=== PATIENT | female | born 1945 | race Caucasian/White ===

== ENCOUNTER 2020-06-21 07:34 | Outpatient (REF) | payer OTHER, SELFPAY ==
[2020-06-21 07:53] LABS: Hematocrit 47.2 % (37-47); Hemoglobin 15.7 g/dl (12.0-16.0); Mean Corpuscular HGB Conc 33.3 g/dl (31.0-35.0); Mean Corpuscular Hemoglobin 30.8 pg (27.0-33.0); Mean Corpuscular Volume 92.7 fL (80-98); Mean Platelet Volume 10.5 fL (9.4-12.3); NRBC Pct Auto 0.1 /100WBC (0.0-0.2); Platelet Count 342 X10*3/uL (160-400); Red Blood Count 5.09 X10*6/uL (4.20-5.50); White Blood Count 15.5 X10*3/uL (4.8-10.8)
[2020-06-21 08:21] LABS: Alanine Aminotransferase 99 U/L (0-31); Albumin Level 3.4 g/dL (3.5-5.0); Anion Gap 14 (12-20); Aspartate Amino Transferase 30 U/L (5-31); Bilirubin Total 0.5 mg/dL (0.0-1.0); Blood Urea Nitrogen 51 mg/dL (9-16); Calcium 9.3 mg/dL (8.4-10.2); Carbon Dioxide 28 mmol/L (22-29); Chloride 100 mmol/L (96-108); Estimated Glomerular Filt Rate 50; Glucose Random 87 mg/dL (60-115); Sodium 137 mmol/L (135-145); Total Protein 6.2 g/dL (6.5-8.0)
[2020-06-21 08:22] LABS: Alkaline Phosphatase 60 U/L (39-117)
== END 2020-06-21 07:35 | disposition home or self-care (01) ==
LOC: HO.MMNH1L 07:34
PROVIDERS: Visit Provider Family Medicine
DX: U07.1 COVID-19 (principal); I10 Essential (primary) hypertension
CPT/HCPCS: 36415; 80053; 85027

== ENCOUNTER 2020-06-26 10:52 | Outpatient (REF) | payer MEDICARE, SELFPAY ==
[2020-06-26 07:32] LABS: Hematocrit 40.6 % (37-47); Hemoglobin 12.9 g/dl (12.0-16.0); Mean Corpuscular HGB Conc 31.8 g/dl (31.0-35.0); Mean Corpuscular Hemoglobin 30.9 pg (27.0-33.0); Mean Corpuscular Volume 97.1 fL (80-98); Mean Platelet Volume 10.2 fL (9.4-12.3); Platelet Count 239 X10*3/uL (160-400); Red Blood Count 4.18 X10*6/uL (4.20-5.50); Red Cell Distribution Width 13.4 % (11.0-16.0); White Blood Count 7.2 X10*3/uL (4.8-10.8)
[2020-06-26 07:56] LABS: Anion Gap 12 (12-20); Blood Urea Nitrogen 28 mg/dL (9-16); Calcium 8.2 mg/dL (8.4-10.2); Carbon Dioxide 29 mmol/L (22-29); Chloride 104 mmol/L (96-108); Estimated Glomerular Filt Rate 43; Glucose Random 77 mg/dL (60-115); Potassium 4.1 mmol/L (3.3-5.1); Sodium 141 mmol/L (135-145)
== END 2020-06-26 10:53 | disposition home or self-care (01) ==
LOC: HO.MMNH1L 10:52
PROVIDERS: Visit Provider Family Medicine
DX: U07.1 COVID-19 (principal); I10 Essential (primary) hypertension
CPT/HCPCS: 36415; 80048; 85027

== ENCOUNTER 2020-07-03 10:29 | Outpatient (REF) | payer MEDICARE, SELFPAY ==
[2020-07-03 08:35] LABS: Hematocrit 41.1 % (37-47); Hemoglobin 12.8 g/dl (12.0-16.0); Mean Corpuscular HGB Conc 31.1 g/dl (31.0-35.0); Mean Corpuscular Hemoglobin 30.8 pg (27.0-33.0); Mean Corpuscular Volume 98.8 fL (80-98); Mean Platelet Volume 10.8 fL (9.4-12.3); Platelet Count 200 X10*3/uL (160-400); Red Blood Count 4.16 X10*6/uL (4.20-5.50); Red Cell Distribution Width 13.3 % (11.0-16.0); White Blood Count 6.8 X10*3/uL (4.8-10.8)
[2020-07-03 09:24] LABS: Anion Gap 13 (12-20); Blood Urea Nitrogen 27 mg/dL (9-16); Calcium 8.6 mg/dL (8.4-10.2); Carbon Dioxide 30 mmol/L (22-29); Chloride 104 mmol/L (96-108); Estimated Glomerular Filt Rate 36; Glucose Random 82 mg/dL (60-115); Sodium 143 mmol/L (135-145)
== END 2020-07-03 10:30 | disposition home or self-care (01) ==
LOC: HO.MMNH1L 10:29
PROVIDERS: Visit Provider Family Medicine
DX: U07.1 COVID-19 (principal); I10 Essential (primary) hypertension
CPT/HCPCS: 36415; 80048; 85027

== ENCOUNTER 2020-07-10 00:26 | Outpatient (REF) | payer MEDICARE, SELFPAY | END 2020-07-10 00:27 | disposition home or self-care (01) | LOC: HO.MMNH1L 00:26 | PROVIDERS: Visit Provider Family Medicine | DX: Z13.89 Encounter for screening for other disorder (principal) ==

== ENCOUNTER → 2022-02-05 14:44 | Outpatient (BNVA) | payer OTHER, SELFPAY | PROVIDERS: Visit Provider Physician Assistant Surgical | DX: E66.01 Morbid (severe) obesity due to excess calories (principal); Z68.41 Body mass index [BMI] 40.0-44.9, adult | CPT/HCPCS: 99202 ==

== ENCOUNTER 2023-04-16 18:34 | Emergency (ER) | payer OTHER, SELFPAY ==
--- NOTE | ~2023-04-16 | CT_ITS ---
EXAMINATION: CT ABDOMEN AND PELVIS WITHOUT CONTRAST CLINICAL INFORMATION: Right flank pain and hematuria COMPARISON: None available. TECHNIQUE: Multidetector volumetric imaging was performed from the superior aspect of the liver through the pubic symphysis. Sagittal and coronal reformatted images were obtained on the technologist's workstation. This CT examination was performed using dose optimization techniques as appropriate, variously including the following: *Automated exposure control *Adjustment of mA and/or kV according to patient size (this includes techniques or standardized protocols for targeted exams where dose is matched to indication/reason for exam; i.e. extremities or head) *Use of iterative reconstruction technique DLP: 1327 mGy-cm FINDINGS: LUNG BASES: The visualized lung bases are unremarkable. LIVER, GALLBLADDER, AND BILIARY TREE: The liver is normal in size, shape, and attenuation. No focal hepatic lesion or biliary ductal dilatation is present. The gallbladder is not seen and has presumably been removed. PANCREAS: Unremarkable. SPLEEN: Unremarkable. ADRENAL GLANDS: Unremarkable. KIDNEYS AND URETERS: The kidneys are normal in size, shape, and attenuation. No hydronephrosis, hydroureter, or calculi seen. Bilateral renal cysts. No imaging follow-up recommended. No perinephric stranding. BLADDER: Not optimally distended. GASTROINTESTINAL TRACT: Diverticulosis of the colon. No evidence of diverticulitis. The small and large bowel are otherwise unremarkable. The appendix is not seen. No inflammatory changes in the right lower quadrant. ABDOMINAL WALL: Small elbow hernia fat. LYMPH NODES: Normal. VASCULAR: Unremarkable. PELVIC VISCERA: Unremarkable. OSSEOUS STRUCTURES: Left hip hemiarthroplasty. Degenerative changes of the spine. CT/CT abdomen pelvis wo IV con IMPRESSION: No stone or hydronephrosis. Diverticulosis of the colon. No evidence of diverticulitis. Fleischner guidelines were followed.
[2023-04-16 19:18] VITALS: BP 171/101; PULSE 74; RESP 18; TEMP 36.6; O2SAT 97; BMI 40.5
--- NOTE | 2023-04-16 19:18 | ED.FEMALEGU ---
HPI - Female Genitourinary General Chief complaint: Urogenital-Female Stated complaint: ?UTI Time Seen by Provider: 04/16/23 20:31 Source: patient Mode of arrival: ambulatory Limitations: no limitations History of Present Illness HPI Narrative: Patient's history of urinary incontinence been having bladder spasm and more incontinence for last 2- 3 days was seen at [facility] and diagnosed with UTI and started on Ceftin. No fever but patient has chills feels exhausted also has pain in the back patient has a right-sided had rg blood in the urine 2 days ago no history of kidney stone Related Data Home Medications Medication Instructions Recorded Confirmed acetaminophen 325 mg tablet 325 mg PO QID PRN 02/05/22 02/05/22 (Tylenol) apixaban 2.5 mg tablet (Eliquis) 2.5 mg PO BID 02/05/22 02/05/22 ascorbic acid (vitamin C) 250 mg 250 mg PO DAILY 02/05/22 02/05/22 tablet ascorbic acid (vitamin C) 250 mg 250 mg PO DAILY 02/05/22 02/05/22 tablet cholecalciferol (vitamin D3) 25 25 mcg PO DAILY 02/05/22 02/05/22 mcg (1,000 unit) capsule (Vitamin D3) famotidine 40 mg tablet 40 mg PO BID 02/05/22 02/05/22 fenofibrate 54 mg tablet 54 mg PO DAILY 02/05/22 02/05/22 fluoxetine 20 mg capsule 20 mg PO DAILY 02/05/22 02/05/22 gabapentin 300 mg capsule 300 mg PO QAM 02/05/22 02/05/22 losartan 50 mg tablet 50 mg PO DAILY 02/05/22 02/05/22 magnesium oxide 500 mg capsule 125 mg PO DAILY 02/05/22 02/05/22 multivitamin with folic acid 400 1 tab PO DAILY 02/05/22 02/05/22 mcg tablet (Daily-Calixto (with folic acid)) Previous Rx's Medication Instructions Recorded phenazopyridine 200 mg tablet 200 mg PO TID 2 days #6 tabs 04/16/23 (Pyridium) Allergies Allergy/AdvReac Type Severity Reaction Status Date / Time CODINE Allergy Severe Anaphylaxis Uncoded 04/16/23 19:22 STATIN FAMILY Allergy Mild RASH Uncoded 04/16/23 19:22 Review of Systems Review of Systems: Yes all other systems are reviewed and are negative [facility] Past Medical History Surgical History S/P cholecystectomy S/P appendectomy History of left hip replacement History of total left knee replacement Family History Family History Mother Breast cancer Chronic emphysema syndrome Father Cancer Brother Heart problem Sister Diabetes Son No problems noted. Son Asthma Daughter Asthma Social History Social History Alcohol intake: never Patient Tobacco Use Status: Never used Tobacco Smoked in Last 30 Days: No Use of substances other than those prescribed or required for medical reasons: No Advance Directives: No Physical Exam Vital Signs: Vital Signs: Last Vital Signs Temp 98.2 F 04/17/23 00:27 Pulse 79 04/17/23 00:27 Resp 20 04/17/23 00:27 BP 145/70 H 04/17/23 00:27 Pulse Ox 98 04/17/23 00:27 O2 Del Method Room Air 04/17/23 00:27 BMI result Body Mass Index 40.5 Appearance: Alert. Oriented X3. No acute distress. Obese Eyes: PERRLA, No Nystagmus ENT: Pharynx normal. Oral Mucosa moist Neck: Normal inspection. Neck supple. CVS: Normal heart rate and rhythm. Pulses normal. Respiratory: No respiratory distress. Equal air entry bilateral, no wheezing/rales/rhonchi Abdomen: Soft , deep tenderness suprapubic area and right flank area. Bowel sounds are present, no mass palpable, Skin: Skin warm and dry. Normal skin color. Normal skin turgor. Extremities: No lower extremity edema. No calf tenderness Neuro: Oriented X 3. No motor deficit. Course Course Course Narrative: RME: 78yo F w/PMHx Anxiety, HTN, obesity, depression c/o continued dysuria, frequency & hematuria s/p UTI diagnosis at [facility] yesterday. Admits to decreased PO intake. Reports chronic incontinence - worsening since UTI Patient was Rx Ceftin at [facility] Labs, UA ordered Full HPI, ROS and PE to be performed by primary ED provider. Medications Administered Discontinued Medications Generic Name Dose Route Start Last Admin Trade Name Freq PRN Reason Stop Dose Admin Apixaban 2.5 mg 12/13/23 21:24 04/16/23 22:47 Apixaban 2.5 Mg Tablet PO 04/16/23 21:25 2.5 mg ONCE ONE Administration Ceftriaxone Sodium 1 gm/ 50 mls @ 100 mls/hr 04/16/23 22:14 04/16/23 22:47 Sodium Chloride IV 04/16/23 22:43 100 mls/hr ONCE ONE Administration Losartan Potassium 50 mg 04/16/23 21:24 04/16/23 22:47 Losartan Potassium 50 Mg Tablet PO 04/16/23 21:25 50 mg ONCE ONE Administration Protocol Morphine Sulfate 4 mg 04/16/23 21:24 04/16/23 22:46 Morphine Sulfate 4 Mg/Ml Cartridge IVPUSH 04/16/23 21:25 4 mg ONCE ONE Administration Protocol Ondansetron HCl 4 mg 04/16/23 21:24 04/16/23 22:46 Ondansetron Hcl 4 Mg/2 Ml Vial IVPUSH 04/16/23 21:25 4 mg ONCE ONE Administration Phenazopyridine HCl 200 mg 04/16/23 22:59 04/16/23 23:34 Phenazopyridine Hcl 200 Mg Tablet PO 04/16/23 23:00 200 mg ONCE ONE Administration Medical Decision Making Medical Decision Making [facility] Narrative: Patient with partially treated UTI with bladder spasm IV dose of Rocephin was given advised to continue Ceftin and take Pyridium for bladder spasm and follow with urologist Differential Diagnosis Differential Diagnoses: The differential diagnosis associated with the presentation includes UTI/pyelonephritis/kidney stone Lab Data [facility] Lab Attestation statement: I reviewed the patient's lab results. 04/16/23 19:41 04/16/23 19:41 Labs: Lab Results 04/16/23 04/16/23 Range/Units 19:41 21:54 WBC 10.8 (4.8-10.8) X10*3/uL RBC 5.17 (4.20-5.50) X10*6/uL Hgb 15.9 (12.0-16.0) g/dl Hct 49.3 H (37.0-47.0) % MCV 95.4 (80.0-98.0) fL MCH 30.8 (27.0-33.0) pg MCHC 32.3 (31.0-35.0) g/dl RDW 13.7 (11.0-16.0) % Plt Count 226 (160-400) X10*3/uL MPV 9.5 (9.4-12.3) fL Immature Gran % (Auto) 0.2 (0.0-0.4) % Neut % (Auto) 48.8 (45-73) % Lymph % (Auto) 40.2 H (20-40) % [place] % (Auto) 8.6 (2-11) % Eos % (Auto) 1.9 (0-4) % Baso % (Auto) 0.3 (0-2) % Lymph # (Auto) 4.4 (1.2-4.9) X10*3/uL [place] # (Auto) 0.9 (0.1-1.2) X10*3/uL Eos # (Auto) 0.2 (0.0-0.4) X10*3/uL Baso # (Auto) 0.0 (0.0-0.2) X10*3/uL Abs Immat Gran (auto) 0.02 (0.00-0.03) X10*3/uL Absolute Neuts (auto) 5.3 (2.0-8.3) x10*3/uL Absolute Nucleated RBC 0.000 (0.0-0.012) X10*3/uL Nucleated RBC % (auto) 0.0 (0.0-0.2) /100WBC Sodium 142 (135-145) mmol/L Potassium 3.7 (3.3-5.1) mmol/L Chloride 107 (96-108) mmol/L Carbon Dioxide 24 (22-29) mmol/L Anion Gap 15 (12-20) BUN 26 H (9-16) mg/dL Creatinine 1.22 (0.5-1.4) mg/dL Estim Creat Clear Calc 49.4 Estimated GFR 43 Random Glucose 131 H (60-115) mg/dL Calcium 10.0 D (8.4-10.2) mg/dL Magnesium 2.2 (1.6-2.6) mg/dL Total Bilirubin 0.5 (0.0-1.0) mg/dL Direct Bilirubin 0.2 (0.0-0.5) mg/dL AST 30 (5-31) U/L ALT 23 (0-31) U/L Alkaline Phosphatase 43 (39-117) U/L Total Protein 8.2 H (6.5-8.0) g/dL Albumin 4.4 (3.5-5.0) g/dL Urine Color Yellow Urine Appearance Cloudy Urine pH 5.0 (5.0-9.0) Ur Specific [place] 1.020 (1.005-1.025) Urine Protein 300 (3+) H (Neg-Trace) mg/dL Urine Glucose (UA) Negative (Negative) mg/dL Urine Ketones Negative (Negative) mg/dL Urine Blood Large (3+) H (Negative) Urine Nitrite Negative (Negative) Ur Leukocyte Esterase Trace H (Negative) Urine RBC >20 H (0-2) /HPF Urine WBC 6-10 H (0-5) /HPF Ur Squamous Epith Cells 6-10 (0-2) /HPF Urine Bacteria None Seen (None Seen) Hyaline Casts 0-2 (0-2) /LPF Discharge Plan Discharge Clinical Impression: Cystitis Patient Disposition: Home, Self-Care Instructions: Urinary Tract Infection in Women (ED) Additional Instructions: Drink plenty of fluids Continue antibiotic as prescribed Take pyridium for bladder spasm Follow-up with PCP if not better Prescriptions: New phenazopyridine [Pyridium] 200 mg tablet 200 mg PO TID 2 Days Qty: 6 0RF No Action losartan 50 mg tablet 50 mg PO DAILY gabapentin 300 mg capsule 300 mg PO QAM fluoxetine 20 mg capsule 20 mg PO DAILY Eliquis 2.5 mg tablet 2.5 mg PO BID ascorbic acid (vitamin C) 250 mg tablet 250 mg PO DAILY famotidine 40 mg tablet 40 mg PO BID fenofibrate 54 mg tablet 54 mg PO DAILY cholecalciferol (vitamin D3) [Vitamin D3] 25 mcg (1,000 unit) capsule 25 mcg PO DAILY multivitamin with folic acid [Daily-Calixto (with folic acid)] 400 mcg tablet 1 tab PO DAILY ascorbic acid (vitamin C) 250 mg tablet 250 mg PO DAILY magnesium oxide 500 mg capsule 125 mg PO DAILY acetaminophen [Tylenol] 325 mg tablet 325 mg PO QID PRN Interventions: ED Discharge Assessment Last Done: 04/17/23 00:28 Discharge Date/Time: 04/17/23 00:31
[2023-04-16 19:47] LABS: MANUAL DIFF FLAG NO
[2023-04-16 19:49] LABS: Basophils Percent Auto 0.3 % (0-2); Eosinophils Absolute Auto 0.2 X10*3/uL (0.0-0.4); Eosinophils Percent Auto 1.9 % (0-4); Hematocrit 49.3 % (37.0-47.0); Hemoglobin 15.9 g/dl (12.0-16.0); Imm Gran Abs Auto 0.02 X10*3/uL (0.00-0.03); Imm Gran Pct Auto 0.2 % (0.0-0.4); Lymphocytes Absolute Auto 4.4 X10*3/uL (1.2-4.9); Lymphocytes Percent Auto 40.2 % (20-40); Mean Corpuscular HGB Conc 32.3 g/dl (31.0-35.0); Mean Corpuscular Hemoglobin 30.8 pg (27.0-33.0); Mean Corpuscular Volume 95.4 fL (80.0-98.0); Mean Platelet Volume 9.5 fL (9.4-12.3); Monocytes Absolute Auto 0.9 X10*3/uL (0.1-1.2); Monocytes Percent Auto 8.6 % (2-11); Neutrophils Absolute Auto 5.3 x10*3/uL (2.0-8.3); Neutrophils Percent Auto 48.8 % (45-73); Platelet Count 226 X10*3/uL (160-400); Red Blood Count 5.17 X10*6/uL (4.20-5.50); Red Cell Distribution Width 13.7 % (11.0-16.0); White Blood Count 10.8 X10*3/uL (4.8-10.8)
[2023-04-16 20:02] LABS: Alanine Aminotransferase 23 U/L (0-31); Albumin Level 4.4 g/dL (3.5-5.0); Alkaline Phosphatase 43 U/L (39-117); Anion Gap 15 (12-20); Aspartate Amino Transferase 30 U/L (5-31); Bilirubin Direct 0.2 mg/dL (0.0-0.5); Bilirubin Total 0.5 mg/dL (0.0-1.0); Blood Urea Nitrogen 26 mg/dL (9-16); Carbon Dioxide 24 mmol/L (22-29); Chloride 107 mmol/L (96-108); Creatinine Clr Calc Pharmacy 49.4; Estimated Glomerular Filt Rate 43; Glucose Random 131 mg/dL (60-115); Magnesium 2.2 mg/dL (1.6-2.6); Potassium 3.7 mmol/L (3.3-5.1); Sodium 142 mmol/L (135-145); Total Protein 8.2 g/dL (6.5-8.0)
--- OUTSIDE RECORDS SUMMARY | 2023-04-16 20:58 | XMS_ITS | Continuity of Care Document ---
Author Name Unknown Organization [facility] ter Address [address] [place] [phone]- Care Team Providers Care Capacity Analyst Name Role Phone Trice Andrea MD Primary Care Physician Encounter [facility] [place] Date(s): 01/18/22 - 01/18/[address] [address] Discharge Disposition: A-D/C Home Attending Physician: Sukh Truong MD Admitting Physician: Sukh Truong MD Referring Physician: Sukh Truong MD Allergies, Adverse Reactions, Alerts Substance Reaction Severity Status codeine anaphalyaxis Active erythromycin rash Active Latex red hands and itchy' Active NSAIDs itch,rash Active Immunizations Given and Recorded Vaccine Date Status Refusal Reason pneumococcal 23-valent vaccine 02/20/10 Given Medications biotin 10 mg oral tablet 1 tablet = 10 mg, By Mouth, Daily, 0 Refills, Maintenance, 01/16/22 17:32:00 EDT, Partial fill uponpatient request if the prescription is for a schedule II opioid drug. Start Date: 01/16/22 Status: Ordered clotrimazole 1% topical cream 1 application, Topically, 2 times a day, PRN Rash, Maintenance, 01/27/20 10:39:00 EDT, Cream Start Date: 01/27/20 Status: Ordered Eliquis 2.5 mg oral tablet 1 tablet = 2.5 mg, By Mouth, 2 times a day, # 60 tablet, 0 Refills, Maintenance, 01/16/22 17:27:00 EDT, Tablet, Partial fill upon patient request if the prescription is for a schedule II opioid drug. Start Date: 01/16/22 Status: Ordered famotidine 40 mg oral tablet 1 tablet = 40 mg, By Mouth, 2 times a day, # 60 tablet, 0 Refills, Maintenance, 01/16/22 17:29:00 EDT, Tablet, Partial fill upon patient request if the prescription is for a schedule II opioid drug. Start Date: 01/16/22 Status: Ordered fenofibrate 50 mg oral capsule 1 capsule = 50 mg, By Mouth, Daily in AM, Maintenance, 01/27/20 10:36:00 EDT, Capsule Start Date: 01/27/20 Status: Ordered fluoxetine 20 mg oral capsule 1 capsule = 20 mg, By Mouth, Daily, 0 Refills, Maintenance Start Date: 04/23/11 Status: Ordered gabapentin 600 mg oral tablet 1 tablet = 600 mg, By Mouth, 3 times a day, # 90 tablet, 5 Refills, Maintenance, 01/16/22 17:26:00 EDT, Tablet, Partial fill upon patient request if the prescription is for a schedule II opioid drug. Start Date: 01/16/22 Status: Ordered Losartan = 75 mg, By Mouth, Daily, (takes a 50 mg plus a 25mg for total dose of 75mg), 0 Refills, Maintenance, 10/03/20 10:44:00 EDT, Partial fill upon patient request if the prescription is for a schedule IIopioid drug. Start Date: 10/03/20 Status: Ordered Miscellaneous Rx 125 mg, Chew, Daily, 0 Refills, Maintenance, Magnesium, 01/17/22 14:49:00 EDT Start Date: 01/17/22 Status: Ordered Multivitamin 1 tablet, By Mouth, Daily, 0 Refills, Maintenance, 10/03/20 10:19:00 EDT, Partial fill upon patientrequest if the prescription is for a schedule II opioid drug. Start Date: 10/03/20 Status: Ordered Myrbetriq 50 mg oral tablet, extended release 1 tablet = 50 mg, By Mouth, Daily in AM, do not crush or chew, Maintenance, 01/27/20 10:37:00 EDT, ER Tablet Start Date: 01/27/20 Status: Ordered Probiotic Formula By Mouth, Daily, 0 Refills, Maintenance, 01/16/22 17:33:00 EDT, Partial fill upon patient request if the prescription is for a schedule II opioid drug. 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 Active Severe obesity(Confirmed) Active 1Left Forearm Vital Signs Most recent to oldest [Reference Range]: 1 2 3 Height 167.6 cm (01/18/22 7:30 AM) 167.6 cm (01/16/22 6:26 PM) Weight 118.4 kg (01/18/22 7:30 AM) 116.3 kg (01/16/22 6:26 PM) Oxygen Saturation [94-100 %] 100 % (01/18/22 8:45 AM) 100 % (01/18/22 8:30 AM) 97 % (01/18/22 7:30 AM) Pulse Rate [55-90 bpm] 58 bpm (01/18/22 7:30 AM) Body Mass Index [18.5-24.99] 42.15 *>HHI* (01/18/22 7:30 AM) 41.4 *>HHI* (01/16/22 6:26 PM) Blood Pressure [90-138/55-84 mm Hg] 116/48mm Hg (01/18/22 8:30 AM) 157/66mm Hg *H* (01/18/22 7:30 AM) Respiratory Rate [16-30 br/min] 14 br/min *L* (01/18/22 8:30 AM) 16 br/min (01/18/22 7:30 AM) Temperature [96.8-100.4 DegF] 97 DegF (01/18/22 8:30 AM) 98.2 DegF (01/18/22 7:30 AM) Liters per Minute 4 L/min (01/18/22 8:30 AM) Mode of Delivery (Oxygen) Room air (01/18/22 9:00 AM) Room air (01/18/22 8:45 AM) Simple face mask (01/18/22 8:30 AM) Blood pressure sites Arm, left (01/18/22 8:30 AM) Arm, right (01/18/22 7:30 AM) Temperature Route Temporal (01/18/22 8:30 AM) Temporal (01/18/22 7:30 AM) Dry Weight 118.4 kg (01/18/22 7:30 AM) 116.3 kg (01/16/22 6:26 PM) Weight Obtained Via Standing scale (01/18/22 7:30 AM) Patient/family stated (01/16/22 6:26 PM) Dry Weight Obtained Via Standing scale (01/18/22 7:30 AM) Social History Social History Type Response Smoking Status Never smoker entered on: 09/14/14 Sex Implantable Device List Procedure Provider Procedure Date Device Type Site Cystoscopy with Transurethral Injection Sukh Truong MD 01/18/22 Unknown Urethra Device Identifier Serial Number Lot or Batch Number Manufacturing Date Expiration Date Distinct Identification Code MRI Safety Implantable Status Assigning Authority Unknown [id number] Unknown 03/04/24 Unknown Unknown Active Unknown Care Team Personnel Name: Trice Andrea MD Address: [address] [place] [address]
--- OUTSIDE RECORDS SUMMARY | 2023-04-16 20:58 | XMS_ITS | Continuity of Care Document ---
Author Name Unknown Organization [facility] ter Address [address] [place] [id number]- Care Team Providers Care Special Trackwork Blacksmith Name Role Phone Anival Rojas MD, [facility] En[facility] [place] Date(s): 06/19/21 - 11/02/[address] [address] Attending Physician: Sukh Truong MD Admitting Physician: Sukh Truong MD Allergies, Adverse Reactions, Alerts Substance Reaction Severity Status codeine anaphalyaxis Active erythromycin rash Active Latex red hands and itchy' Active NSAIDs itch,rash Active Immunizations Given and Recorded Vaccine Date Status Refusal Reason pneumococcal 23-valent vaccine 02/20/10 Given Medications clotrimazole 1% topical cream 1 application, Topically, 2 times a day, PRN Rash, Maintenance, 01/27/20 10:39:00 EDT, Cream Start Date: 01/27/20 Status: Ordered fenofibrate 50 mg oral capsule 1 capsule = 50 mg, By Mouth, Daily in AM, Maintenance, 01/27/20 10:36:00 EDT, Capsule Start Date: 01/27/20 Status: Ordered fluoxetine 20 mg oral capsule 1 capsule = 20 mg, By Mouth, Daily, 0 Refills, Maintenance Start Date: 04/23/11 Status: Ordered Fosamax 70 mg oral tablet 1 tablet = 70 mg, By Mouth, Every week, takes on Friday, # 12 tablet, 0 Refills, Maintenance, 10/03/20 10:16:00 EDT, Tablet, Partial fill upon patient request if the prescription is for a scheduleII opioid drug. Start Date: 10/03/20 Status: Ordered Losartan = 75 mg, By Mouth, Daily, (takes a 50 mg plus a 25mg for total dose of 75mg), 0 Refills, Maintenance, 10/03/20 10:44:00 EDT, Partial fill upon patient request if the prescription is for a schedule IIopioid drug. Start Date: 10/03/20 Status: Ordered Multivitamin 1 tablet, By Mouth, [...] ER Tablet Start Date: 01/27/20 Status: Ordered Tramadol = 50 mg, By Mouth, 3 times a day, 0 Refills, Maintenance, 04/15/11 16:33:58 EST Start Date: 04/15/11 Status: Ordered Trazodone = 50 mg, By Mouth, Daily at bedtime, 0 Refills, Maintenance, 09/14/14 9:36:20 EDT Start Date: 09/14/14 Status: Ordered Vitamin C = 250 mg, By Mouth, Daily in AM, 0 Refills, Maintenance, 01/27/20 10:22:00 EDT Start Date: 01/27/20 Status: Ordered Vitamin D3 = 1,000 International_Units, By Mouth, Daily in AM, 0 Refills, Maintenance, 09/14/14 9:37:47 EDT Start Date: 09/14/14 Status: Ordered Vitamin E 1 tablet, By Mouth, Daily, 0 Refills, Maintenance, 10/03/20 10:19:00 EDT, Partial fill upon patientrequest if the prescription is for a schedule II opioid drug. Start Date: 10/03/20 Status: Ordered Problem List Condition Effective Dates Status Health Status Inform ant S/P L TKA 02/19/10(Confirmed) Active Hypertension(Confirmed) Active Melanoma in situ(Confirmed) 1 09/01/14 Active 1Left Forearm Social History Social History Type Response Smoking Status Never smoker entered on: 09/14/14 Sex
--- OUTSIDE RECORDS SUMMARY | 2023-04-16 20:58 | XMS_ITS | Continuity of Care Document ---
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/20 Discharge Disposition: A-D/C Home Attending Physician: Sukh [...] Refills, Maintenance Start Date: 04/23/11 Status: Ordered losartan 25 mg oral tablet 1 tablet = 25 mg, By Mouth, Daily in AM, Maintenance, 01/27/20 10:37:00 EDT, Tablet Start Date: 01/27/20 Status: Ordered losartan 50 mg oral tablet 50 mg, 1, tablet, By Mouth, Daily in AM, Maintenance, 01/27/20 10:38:00 EDT Start Date: 01/27/20 Status: Ordered Myrbetriq 50 mg oral tablet, extended release 1 tablet = 50 mg, By Mouth, Daily in AM, do not crush or chew, Maintenance, 01/27/20 10:37:00 EDT, ER Tablet Start Date: 01/27/20 Status: Ordered Tramadol = 50 mg, By Mouth, Every 12 hours, 0 Refills, Maintenance, 04/15/11 16:33:58 EST Start [...] in situ(Confirmed) 1 09/01/14 Active 1Left Forearm Vital Signs Most recent to oldest [Reference Range]: 1 2 3 Height 167.64 cm (01/28/20 12:57 PM) 167.64 cm (01/27/20 10:47 AM) Weight 114.8 kg (01/28/20 12:57 PM) 113.64 kg (01/27/20 10:47 AM) Oxygen Saturation [94-100 %] 97 % (01/28/20 3:00 PM) 97 % (01/28/20 2:56 PM) 95 % (01/28/20 12:57 PM) Pulse Rate [55-90 bpm] 62 bpm (01/28/20 12:57 PM) Body Mass Index [18.5-24.99] 40.85 *>HHI* (01/28/20 12:57 PM) 40.44 *>HHI* (01/27/20 10:47 AM) Blood Pressure [90-138/55-84 mm Hg] 118/61mm Hg (01/28/20 3:00 PM) 117/60mm Hg (01/28/20 2:56 PM) 113/53mm Hg (01/28/20 12:57 PM) Respiratory Rate [16-30 br/min] 11 br/min *L* (01/28/20 3:00 PM) 8 br/min *L* (01/28/20 2:56 PM) 24 br/min (01/28/20 12:57 PM) Temperature [96.8-100.4 DegF] 98 DegF (01/28/20 4:20 PM) 98 DegF (01/28/20 2:56 PM) 98 DegF (01/28/20 12:57 PM) Mode of Delivery (Oxygen) Room air (01/28/20 4:20 PM) Room air (01/28/20 2:56 PM) Room air (01/28/20 12:57 PM) Blood pressure sites Arm, right (01/28/20 12:57 PM) Temperature Route Temporal (01/28/20 2:56 PM) Temporal (01/28/20 12:57 PM) Dry Weight 114.8 kg (01/28/20 12:57 PM) 113.64 kg (01/27/20 10:47 AM) Weight Obtained Via Standing scale (01/28/20 12:57 PM) Patient/family stated (01/27/20 10:47 AM) Dry Weight Obtained Via Standing scale (01/28/20 12:57 PM) Patient/family stated (01/27/20 10:47 AM) Social History Social History Type Response Smoking Status Never smoker entered on: 09/14/14 Sex
--- OUTSIDE RECORDS SUMMARY | 2023-04-16 20:58 | XMS_ITS | Continuity of Care Document ---
Author Name Unknown Organization [facility] ter Address [address] [place] [id number]- Care Team Providers Care Medical Field Representative Name Role Phone Anival Rojas MD, [facility] Primary Care Phys ician Encounter [facility] [place] Date(s): 10/11/20 - 10/11/[address] [address]- Encounter Diagnosis Urgency incontinence(Final) - 10/11/20 Uninhibited neurogenic bladder(Final) - 10/11/20 Detrusor instability(Final) - 10/11/20 Discharge Disposition: A-D/C Home Attending Physician: Sukh [...] oldest [Reference Range]: 1 2 3 Height 165.1 cm (10/11/20 9:13 AM) 165.1 cm (10/03/20 10:41 AM) Weight 112.6 kg (10/11/20 9:13 AM) 110 kg (10/03/20 10:41 AM) Oxygen Saturation [94-100 %] 98 % (10/11/20 11:00 AM) 100 % (10/11/20 10:45 AM) 100 % (10/11/20 10:30 AM) Pulse Rate [55-90 bpm] 55 bpm (10/11/20:13 AM) Body Mass Index [18.5-24.99] 41.31 *>HHI* (10/11/20 9:13 AM) 40.36 *>HHI* (10/03/20 10:41 AM) Blood Pressure [90-138/55-84 mm Hg] 142/78mm Hg *H* (10/11/20 11:00 AM) 118/64mm Hg (10/11/20 10:45 AM) 123/59mm Hg (10/11/20 10:30 AM) Respiratory Rate [16-30 br/min] 11 br/min *L* (10/11/20 11:00 AM) 12 br/min *L* (10/11/20 10:45 AM) 12 br/min *L* (10/11/20 10:30 AM) Temperature [96.8-100.4 DegF] 97 DegF (10/11/20 11:00 AM) 97.6 DegF (10/11/20 10:15 AM) 97.5 DegF (10/11/20:13 AM) Liters per Minute 5 L/min (10/11/20 10:15 AM) Mode of Delivery (Oxygen) Room air (10/11/20 12:00 PM) Room air (10/11/20 11:00 AM) Room air (10/11/20 10:45 AM) Blood pressure sites Arm, left (10/11/20 11:00 AM) Arm, left (10/11/20 10:15 AM) Arm, left (10/11/20 9:13 AM) Temperature Route Temporal (10/11/20 11:00 AM) Temporal (10/11/20 10:15 AM) Temporal (10/11/20 9:13 AM) Dry Weight 112.6 kg (10/11/20 9:13 AM) 110 kg (10/03/20 10:41 AM) Weight Obtained Via Standing scale (10/11/20 9:13 AM) Patient/family stated (10/03/20 10:41 AM) Dry Weight Obtained Via Patient/family s tated (10/03/20 10:41 AM) Social History Social History Type Response Smoking Status Never smoker entered on: 09/14/14 Sex
[2023-04-16 22:02] LABS: Appearance Urine Cloudy; Color Urine Yellow; Glucose Urine UA Negative (Negative); Leukocyte Esterase Urine Trace (Negative); Nitrite Urine Negative (Negative); UMIC TRIGGER UACC YES; Urine Blood Large (3+) (Negative); Urine Ketones Negative (Negative); Urine Protein 300 (3+) mg/dL (Neg-Trace)
[2023-04-16 22:03] VITALS: BP 153/70; PULSE 69; RESP 18; TEMP 36.8; O2SAT 98
[2023-04-16 22:13] LABS: Bacteria Urine None Seen (None Seen); Hyaline Casts Urine 0-2 /LPF (0-2); RBC Urine >20 /HPF (0-2); UACC Culture Trigger YES
[2023-04-16] MEDS: ondansetron HCL 4 MG/2 ML VIAL IVPUSH (22:46)
[2023-04-16] MEDS: Morphine Sulfate 4 MG/ML CARTRIDGE IVPUSH (22:46)
[2023-04-16] MEDS: cefTRIAXone sodium 1 GM in 0.9 % Sodium Chloride 50 ML IV (22:47)
[2023-04-16] MEDS: Losartan Potassium 50 MG TABLET PO (22:47)
[2023-04-16] MEDS: Apixaban 2.5 MG TABLET PO (22:47)
[2023-04-16] MEDS: Phenazopyridine HCL 200 MG TABLET PO (23:34)
[2023-04-17 00:27] VITALS: BP 145/70; PULSE 79; RESP 20; TEMP 36.8; O2SAT 98
== END 2023-04-17 00:31 | disposition home or self-care (01) ==
PROVIDERS: Physician Assistant; Emergency Provider Internal Medicine; PCP Family Medicine
DX: N30.91 Cystitis, unspecified with hematuria (principal); I10 Essential (primary) hypertension; Z79.01 Long term (current) use of anticoagulants; Z79.899 Other long term (current) drug therapy
CPT/HCPCS: 36415; 51702; 74176; 80048; 80076; 81001; 81003; 83735; 85025; 87086; 96374; 96375; 99284; J0696; J2270; J2405

== ENCOUNTER 2023-10-14 14:32 | Outpatient (REF) | payer OTHER, SELFPAY ==
--- NOTE | ~2023-10-14 | CT_ITS ---
EXAMINATION: CT HEAD WITHOUT CONTRAST CLINICAL INFORMATION: Headache COMPARISON: None available. TECHNIQUE: Contiguous axial imaging was performed from the skull base to vertex without intravenous administration of contrast. This CT examination was performed using dose optimization techniques as appropriate, variously including the following: *Automated exposure control *Adjustment of mA and/or kV according to patient size (this includes techniques or standardized protocols for targeted exams where dose is matched to indication/reason for exam; i.e. extremities or head) *Use of iterative reconstruction technique DLP: 808 mGy-cm FINDINGS: Ventricles, sulci and cisterns are abnormally dilated, especially the ventricles. Bilateral frontal deep white matter shows patchy decrease in attenuation. There is no midline shift, no abnormal intra- or extra- axial fluid accumulation. Nair and white matter differentiation is normal. Bone window images show no evidence of skull fracture. CT/CT head/brain wo IV con IMPRESSION: 1. No acute intracranial hemorrhage or extra-axial fluid accumulation. 2. 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
== END 2023-10-14 14:33 | disposition home or self-care (01) ==
LOC: HO.CT 14:32
PROVIDERS: PCP Family Medicine; Visit Provider Nurse Practitioner Family
DX: R51.9 Headache, unspecified (principal)
CPT/HCPCS: 70450